=== PATIENT | male | born 1970 | race Caucasian/White ===

== ENCOUNTER 2025-01-18 09:20 | Inpatient (IN) | payer OTHER ==
[2025-01-18] VITALS (24 sets, daily range): BP systolic 90–164; BP diastolic 39–117; PULSE 64–99; RESP 12–18; TEMP 98.5–98.8; O2SAT 96–100
[~2025-01-18] VITALS: Ht 170.2 cm; Wt 61.4 kg
--- NOTE | 2025-01-18 10:05 | RADIOLOGY REPORT ---
EXAM: DI KNEE, COMP 4 VW MIN CLINICAL INDICATION: RT.KNEE PAIN TECHNIQUE: DI KNEE, COMP 4 VW MIN Comparison: None FINDINGS/IMPRESSION: Comminuted and displaced proximal tibial fracture with extension to the tibial plateau. Extensive soft tissue swelling.
--- NOTE | 2025-01-18 10:07 | RADIOLOGY REPORT ---
CLINICAL INDICATION: RT.LEG PAIN TECHNIQUE: AP and lateral views of the right lower leg were performed. DI TIB/FIB 2 VWS Comparison: None FINDINGS/IMPRESSION: 1. Right proximal tibial fracture involves the plateau and metaphysis, with displacement, comminution, and shortening. There is some articular surface step- off which is best characterized on the lateral film. Consider follow-up noncontrast MRI of the right knee for better characterization of the tibial plateau articular surfaces. 2. No fractures are identified about the right fibula or mid to distal portions of the right tibia.
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
--- NOTE | 2025-01-18 10:56 | RADIOLOGY REPORT ---
CHEST RADIOGRAPH Indication: Pre op Technique: Single frontal view of the chest was obtained. Comparison: None Findings: Mild fullness of the left hilum. No focal consolidation. No significant pleural effusion. No pneumothorax. Nonenlarged cardiomediastinal silhouette. IMPRESSION: Mild fullness of the left hilum. While this is favored to relate to underlying pulmonary vasculature, consider CT chest if there is concern for underlying lymphadenopathy or mass.
[2025-01-18 11:05] LABS: MEAN PLATELET VOLUME 9.0 FL (7.4-10.4); RED CELL DISTRIBUTION WIDTH 16.8 % (11.5-14.5)
[2025-01-18] MEDS ORDERED: MOME13HF12 INH (11:08)
[2025-01-18] MEDS ORDERED: TRAZ-251 PO (11:08)
[2025-01-18] MEDS ORDERED: FERR325T28 PO (11:08)
[2025-01-18] MEDS ORDERED: VARE1TAB24 PO (11:08)
[2025-01-18] MEDS ORDERED: ALBU10.7 (11:08)
[2025-01-18] MEDS ORDERED: OMEP20CA16 PO (11:08)
--- NOTE | 2025-01-18 11:18 | ELECTROCARDIOGRAPH REPORT ---
[facility] Test Date: 2025-01-18 Test Time: 11:15:00 Pat Name: JAMAR SEGAL Department: [facility]- Room: PACU 6 Gender: M Project Architect: : 1970 Requested By: ESSENCE CAMPOS Order Number: [id number] Reading MD: Dr. King Enriquez Measurements Intervals [place] Rate: 65 P: 66 NE: 126 QRS: 32 QRSD: 116 T: 39 QT: 399 QTc: 415 Interpretive Statements Sinus rhythm Nonspecific intraventricular conduction delay Baseline wander in lead(s) II,V6 Electronically Signed On 01-18-2025 19:08:[address] King Enriquez Please click the below link to view image of tracing.
[2025-01-18 11:19] LABS: CREATININE 0.87 MG/DL (0.60-1.10); TOTAL CARBON DIOXIDE 27.7 MMOL/L (24-32); eCRCL 84 ML/MIN; eGFR > 90 ML/MIN
[2025-01-18 11:20] LABS: APTT 31 SECONDS (22-32); INR 1.2 INR
[2025-01-18] MEDS: morphine 4 MG/ML inj SYRINge IV ONE (11:21)
--- NOTE | 2025-01-18 11:59 | RADIOLOGY REPORT ---
CLINICAL INDICATION: Right communuted tib plat fracture. TECHNIQUE: Noncontrast CT of the right lower extremity was performed. Sagittal and coronal reformatted images are provided. COMPARISON: DI KNEE, COMP 4 VW MIN on DOS: 01/18/25, DI TIB/FIB 2 VWS on DOS: 01/18/25 CT Dose: CTDI volume is 16.8 mGy. Dose-length product is 738.7 mGy*cm FINDINGS: There is a comminuted lateral tibial plateau fracture. The fracture also involves the tibial eminence and the inner aspect of the medial tibial plateau. The fracture extends into the metaphysis and proximal diaphysis of the tibia. There is medial compartment joint space narrowing. No dislocation. There is lipohemarthrosis. Diffuse soft tissue swelling in the knee. IMPRESSION: 1. Comminuted fracture of the proximal tibia with extension to the tibial plateau. 2. Comminuted fracture of the proximal fibula. 3. Comminuted fracture of the proximal fibula. 4. Lipohemarthrosis. 5. Soft tissue swelling. All CT scans at this medical facility are performed using dose modulation techniques as appropriate to a performed exam including the following: Automated exposure control was utilized; adjustment of the MA and/or KV according to patient size; and use of iterative reconstruction technique.
[2025-01-18] MEDS ORDERED: magnesium Cl slow-release 64mg tablet PO PRN (12:15)
[2025-01-18] MEDS ORDERED: ondansetron/PF 4mg/2ml inj IV PRN (12:15)
[2025-01-18] MEDS ORDERED: magnesium sulf-water 4G/100mL 100 ML IV PRN (12:15)
[2025-01-18] MEDS ORDERED: magnesium sulf-water 2g/50mL 50 ML IV PRN (12:15)
[2025-01-18] MEDS ORDERED: potassium Cl 40MEQ/1/2NS 520ml 520 ML IV PRN (12:15)
[2025-01-18] MEDS ORDERED: magnesium hydroxide 30ml (MOM) UD suspension PO PRN (12:15)
[2025-01-18] MEDS ORDERED: potassium Cl 20 mEq SR tablet PO PRN ×2 (12:15)
[2025-01-18] MEDS ORDERED: bisacodyl 10mg suppository rectal RC PRN (12:15)
[2025-01-18] MEDS ORDERED: HYDROcodone/acetaminophen 5mg/325mg tablet PO PRN (12:15)
[2025-01-18] MEDS: normal saline 1000ml 1,000 ML IV SCH (12:25)
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
[2025-01-18 13:01] LABS: LEUKOCYTE ESTERASE ,URINE NEGATIVE (Neg); NITRITES, URINE NEGATIVE (Neg); OCCULT BLOOD,URINE NEGATIVE (Neg)
[2025-01-18 13:05] LABS: UA COLLECTION TYPE NON-SPECIFIED
[2025-01-18 13:13] LABS: URINE AMPHETAMINE SCREEN NEGATIVE (Neg); URINE BARBITUATE SCREEN NEGATIVE (Neg); URINE BENZODIAZEPINES SCREEN NEGATIVE (Neg); URINE CANNABINOID SCREEN POSITIVE (Neg); URINE COCAINE SCREEN NEGATIVE (Neg); URINE METHADONE SCREEN NEGATIVE (Neg); URINE OPIATE SCREEN POSITIVE (Neg); URINE PHENCYCLIDINE SCREEN NEGATIVE (Neg)
[2025-01-18] MEDS ORDERED: rocuronium 10mg/ml inj IV ONE (14:15)
[2025-01-18] MEDS ORDERED: midazolam 1 mg/ML 2ml injection ONE (14:18)
[2025-01-18] MEDS ORDERED: fentaNYL /PF 50mcg/ml 5ml ampule ONE (14:18)
[2025-01-18] MEDS ORDERED: ROPIVAcaine 0.5% (5mg/ml) 30ml vial ONE (14:19)
[2025-01-18] MEDS ORDERED: propofol inj 20 ML IV ONE (16:53)
[2025-01-18] MEDS ORDERED: fentaNYL/PF 50MCG/1 ML 2ML syringe ONE (17:09)
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
--- NOTE | 2025-01-18 17:41 | OPERATIVE REPORT ---
Operative Report Providers to ~ Date of Procedure: Jan 18, 2025 Pre-Operative Diagnosis: Right proximal tibial plateau fracture Post-Operative Diagnosis SAME as PRE-Op Procedure Performed Open reduction internal fixation with medial plating Surgeon: Justin Hernandez MD [place] Cutter Operator None Anesthesiologist: Reuben Trevino Type of Anesthesia: General, Other (Femoral nerve block) Findings: Comminuted minimally displaced intra-articular tibial plateau fracture with medial step-off of the medial call if Complications None Prosthetics\Implants used: Right tibial proximal medial plate five holes with 3.5 mm locking and unlocking cortical screws Estimated Blood Loss: 150 mL Specimen Removed: None Description of Procedure: Patient was taken to the operating room after I had obtained informed consent and having discussed with him the indications risks benefits potential complications and limitations of the surgery. Please see the consultation. After I obtained informed consent he was given prophylactic intravenous antibiotics per protocol once in the operating room he was given a general anesthetic and placed in a supine position on the OR table a right femoral nerve block was completed by Anesthesiology and a tourniquet was placed in the right upper thigh that was well padded. Left leg was placed in an SCD device. Surgical time-out was taken protocol and tourniquet was insufflated after the leg had been elevated for 10 minutes . Anterior incision was made starting from the medial parapatellar region extending and curving towards the tibial tubercle and then down the tibial spine persona 16 8 in. Dissection was then carried medially and subperiosteally to visualize the medial column and fracture. The fascia was now reduced with manipulation and clamps anatomic reduction was achieved under fluoroscopic guidance. Medial plate was fitted and drilled and pinned into place in the checked with each drill holes and make sure the screws were: Directly staying a extra-articularly at all times. Once the medial proximal and distal plate screw holes were filled with screws in his taken through a range of motion and examined under anesthesia and found to be stable effort was made to capture of the posterior lateral fragment intra-articular fragment to help stabilize this is was not displaced. A small arthrotomy was made medially to expose the visualize the articular surfaces which were near anatomic of the alignment this was later closed with 1. Vicryl [id number] fashion. Pinning Hemovac hematoma in the knee was evacuated and irrigated with IrriSept solution prior to closure of the incision was and wound was closed in irrigated with IrriSept 1 L. Hemostasis was achieved with electrocautery throughout the case. Subcuticular closure was accomplished with 2-0 Vicryl skin was closed with skin jonatan silver dressing 4x4s ABDs gentle compressive dressing was 6 in Ian wrap was applied tourniquet had been released good distal pulses and capillary refill returned to the foot there were no apparent perioperative complications Counts repoted as correct: Yes JUSTIN HERNANDEZ MD Jan 18, 2025 17:41
[2025-01-18] MEDS ORDERED: HYDROmorphone inj. 0.5 MG/0.5 ML DISP.SYRIN IV PRN (18:25)
[2025-01-18] MEDS: K and/or MAG REPLACEMENT MC SCH (20:00)
[2025-01-18] MEDS: heparin, porcine 5000 units/ml vial SQ SCH (20:00)
[2025-01-18] MEDS: HYDROcodone/acetaminophen 10/325mg tab PO PRN (22:13)
[2025-01-18] MEDS: vancomycin/NS 1 GM ADD-VANTAGE 250 ML IV SCH (22:15)
[2025-01-19] MEDS: ceFAZolin/D5W- 1GM premix 50 ML IV SCH (00:40)
[2025-01-19 02:00] VITALS: BP 117/62; PULSE 55; RESP 15; TEMP 97.2; O2SAT 96
[2025-01-19 04:50] LABS: MEAN PLATELET VOLUME 9.1 FL (7.4-10.4); RED CELL DISTRIBUTION WIDTH 16.9 % (11.5-14.5)
[2025-01-19 05:03] LABS: CREATININE 0.83 MG/DL (0.60-1.10); TOTAL CARBON DIOXIDE 25.4 MMOL/L (24-32); eCRCL 88 ML/MIN; eGFR > 90 ML/MIN
[2025-01-19 06:00] VITALS: BP 108/50; PULSE 55; RESP 13; TEMP 97.2; O2SAT 95
[2025-01-19] MEDS: nicotine 21mg patch - 24 hr TD SCH (07:22)
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
[2025-01-19 10:25] VITALS: BP 128/69; PULSE 74; RESP 17; TEMP 97.9; O2SAT 98
[2025-01-19] MEDS ORDERED: HYDR-3965 PO (15:33)
[2025-01-19] MEDS ORDERED: ACET-1008 PO (15:34)
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
== END 2025-01-19 16:36 | disposition home or self-care (01) | DRG 494 ==
LOC: ER 09:21 → ED HOLD 12:18 → PACU 17:11 → ORTHO 4S 19:20
PROVIDERS: ADMIT Internal Medicine; ATTEND Internal Medicine
PROC: 0QSG04Z Reposition Right Tibia with Internal Fixation Device, Open Approach (ICD-10-PCS; principal; 2025-01-18 14:21)
DX: S82.141A Displaced bicondylar fracture of right tibia, initial encounter for closed fracture (principal); D69.6 Thrombocytopenia, unspecified; D64.9 Anemia, unspecified; J44.9 Chronic obstructive pulmonary disease, unspecified; R91.8 Other nonspecific abnormal finding of lung field; D72.829 Elevated white blood cell count, unspecified; Z88.6 Allergy status to analgesic agent; Z79.899 Other long term (current) drug therapy; V89.2XXA Person injured in unspecified motor-vehicle accident, traffic, initial encounter; Y93.89 Activity, other specified; Y92.89 Other specified places as the place of occurrence of the external cause; Y99.8 Other external cause status
CPT/HCPCS: 36415; 71045; 73564; 73590; 73700; 76000; 80053; 80305; 81003; 85025; 85610; 85730; 87081; 93005; 96374; 97161; 97530; 99285; A4215; A4618; A6258; A6449; A7000; C1713; G0378; J0690; J2250; J2270; J2704; J2795; J3010; J3373; J3490; J7030; J7120